=== PATIENT | female | born 1980 | race Caucasian/White ===

== ENCOUNTER 2018-02-10 19:12 | Observation (INO) | payer OTHER ==
[2018-02-10] MEDS ORDERED: TDAP ADULT 0.5 ML INJ (BOOSTRIX) IM ONE (19:39)
[2018-02-10] MEDS ORDERED: OXYCODONE/APAP 5/325 TAB PO ONE (19:39)
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
[2018-02-10 21:24] LABS: PLATELET COUNT 296 10^3/uL (150-400)
[2018-02-10] MEDS ORDERED: NS 1,000 ML IV ONE (21:28)
[2018-02-10] MEDS ORDERED: IOPAMIDOL (ISOVUE 370) 100 ML BTL IV ONE (21:31)
[2018-02-10] MEDS ORDERED: ONDANSETRON 4 MG/2 ML VIAL IVP PRN (21:34)
[2018-02-10] MEDS ORDERED: CLINDAMYCIN 900 MG/DEXTROSE 50 ML IV ONE (21:53)
[2018-02-10] MEDS: ACETAMINOPHEN 500 MG TAB PO SCH (22:32)
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
[2018-02-10] MEDS: CYCLOBENZAPRINE 10 MG TAB PO PRN (23:44)
[2018-02-11] MEDS: ACETAMINOPHEN 500 MG TAB PO SCH (05:17)
[2018-02-11 05:26] LABS: PLATELET COUNT 274 10^3/uL (150-400)
[2018-02-11] MEDS: CYCLOBENZAPRINE 10 MG TAB PO PRN ×2 (06:08→09:20)
[2018-02-11] MEDS ORDERED: CLINDAMYCIN 900 MG/DEXTROSE 50 ML IV SCH (06:30)
[2018-02-11 07:49] VITALS: BP 117/76
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
--- NOTE | 2018-02-11 09:11 | TRAUMAPNT ---
Trauma Tertiary Progress Note New Findings: No new findings - Assessment/Plan: PAD#1 02/11/2018 Assessment: No changes. Still has some facial pain. VSS. Neuro intact Plan: Discharge today Subjective: My face still hurts but its manageable Objective: Vital Signs Temp Pulse Resp BP Pulse Ox 36.7 C 77 16 117/76 97 02/11/18 07:46 02/11/18 07:46 02/11/18 07:46 02/11/18 07:46 02/11/18 07:46 Laboratory Results 02/11/18 05:01 02/11/18 05:01 02/10/18 02/11/18 02/12/18 05:59 05:59 05:59 Intake Total 800 Balance 800 - C-Spine Clearance Cervical Spine Cleared: Yes Physical Exam - Physical Exam General Appearance: WD/WN, alert, mild distress EENT: other (#7&#8 sockets look ok) Neck: non-tender (Paraspinous muscles slightly tender) Respiratory: chest non-tender, lungs clear, normal breath sounds Cardiac/Chest: regular rate, rhythm Abdomen: normal bowel sounds, non-tender, soft Pelvic Exam: deferred Rectal: deferred Back: Normal inspection Skin: normal color, warm/dry Neuro/Psych: no motor/sensory deficits, alert, normal mood/affect, oriented x 3 Time Spent w/Patient (minutes): 25
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
== END 2018-02-11 10:50 | disposition home or self-care (01) ==
LOC: F3N 22:44
PROVIDERS: ADMIT Surgery; ATTEND Surgery
DX: S06.360A Traumatic hemorrhage of cerebrum, unspecified, without loss of consciousness, initial encounter (principal); S01.81XA Laceration without foreign body of other part of head, initial encounter; S02.5XXA Fracture of tooth (traumatic), initial encounter for closed fracture; S02.40CA Maxillary fracture, right side, initial encounter for closed fracture; T22.012A Burn of unspecified degree of left forearm, initial encounter; T22.011A Burn of unspecified degree of right forearm, initial encounter; S50.811A Abrasion of right forearm, initial encounter; S50.812A Abrasion of left forearm, initial encounter; T31.0 Burns involving less than 10% of body surface; V47.5XXA Car driver injured in collision with fixed or stationary object in traffic accident, initial encounter; W22.11XA Striking against or struck by driver side automobile airbag, initial encounter; Z23 Encounter for immunization; Y92.411 Interstate highway as the place of occurrence of the external cause; M54.2 Cervicalgia
CPT/HCPCS: 70450; 70486; 70498; 71046; 72125; 90471; 96361; 96365; 97161; 97165; 99284; G0378; 82435-PO; 82565-PO; 82947-PO; 84132-PO; 84295-PO; 84520-PO; 85014-PO; Q9967